=== PATIENT | male | born 1995 | race Caucasian/White ===

== ENCOUNTER 2017-02-01 18:01 | Emergency (ER) | payer OTHER ==
[2017-02-01] MEDS ORDERED: methylPREDNISolone ACETATE 80 MG/ML VIAL IM ONE (18:10)
[2017-02-01] MEDS ORDERED: DEXAMETHASONE SOD PHOS 4 MG/ML VIAL IM ONE (18:10)
--- NOTE | 2017-02-01 18:14 | ED Physician Documentation ---
Allergy Symptoms - HISTORIAN Historian: patient - HPI Stated Complaint: rash Chief Complaint: Allergies Additional Information: ate some shellfish inadvertantly and started to have skin rash Onset: minutes (20) Duration: better Associated Symptoms: skin rash, itching Swelling: throat, diffuse Shortness of Breath: none Trouble Swallowing/ Speaking: mild Identified Cause: yes (shrimp) Context: Food Exposure: shellfish Where: work Context: Medication Exposure: none Context: Other Exposure: denies: bee sting, wasp sting, ant bite, spider bite, poison mauro, poison oak, infectious illness, soap, detergent Further Comments: no - ROS EYES/ENT: none CVS/RESP: none GI/: none CONST: none MS/SKIN/LYMPH: none NEURO/PSYCH: none - PAST HX Prior Allergic Reaction: anaphylaxis Medical History: asthma, other (migraine cephalgia) Immunizations: referred to PCP Allergies/Adverse Reactions: Allergies Allergy/AdvReac Type Severity Reaction Status Date / Time shellfish derived Allergy Intermediate Rash Verified 02/01/17 18:27 Home Medications: Ambulatory Orders Medication Instructions Recorded NK [NK] 12/06/15 - SOCIAL HX Smoking History: non-smoker Alcohol Use: occasionally Drug Use: none - FAMILY HX Family History: No - VITAL SIGNS Vital Signs: Vital Signs Temp Pulse Resp BP Pulse Ox 133/84 12/06/15 20:01 - REVIEWED ASSESSMENTS Nursing Assessment Reviewed: Yes Vitals Reviewed: Yes Progress - Results/Orders Results/Orders: no testing ordered - Progress Progress: pt. given 50 mg Benadryl per my direction ivp in ambulance, given 80 mg depo medrol im and 8 mg decadron im in er. Critical Care Note - Critical Care Note Total Time (mins): 0 ED Results Lab/Radiology - Lab Results Lab Results: none ordered - Radiology Radiology Impressions: none ordered - Orders Orders: ED Orders Category Date Time Status Dexamethasone Sod Phosphate [Decadron] Med 02/01/17 18:10 Once 8 mg IM NOW ONE methylPREDNISolone ACETATE [Depo-Medrol] Med 02/01/17 18:10 Once 80 mg IM NOW ONE Allergy Symptons Exam - EXAM General Appearance: no acute distress, alert HEENT: ENT nml inspection, pharynx nml, voice nml, angioedema (minimal skin rash forearms) Skin: arms Extremities: non-tender, nml ROM, no edema Neck: nml inspection Respiratory: no resp. distress, breath sounds nml CVS: reg rate & rhythm, heart sounds normal, equal pulses, no murmur Abdomen: non-tender, no organomegaly, nml bowel sounds, no distention Neuro: oriented X3, CN's nml as tested, motor nml, sensation nml, mood/affect nml Discharge Clincal Impression: Urticaria Referrals: Primary Doctor,No [Primary Care Provider] - 2 Days Home Medications: Ambulatory Orders NK [NK] 12/06/15 Comments: Discharged in stable condition with script for prednisone taper 50 mg to 0 g over next 5 days. Condition: Stable Disposition: 01 HOME, SELF-CARE Decision to Admit: NO Decision Time: 18:13
[2017-02-01 18:56] VITALS: BP 121/75
== END 2017-02-01 18:53 | disposition home or self-care (01) ==
LOC: ED 18:01
DX: L50.9 Urticaria, unspecified (principal)
CPT/HCPCS: J1040; J1100; 96372; 99283